=== PATIENT | male | born 1990 | race Hispanic/Latino ===

== ENCOUNTER 2019-11-15 12:43 | Emergency (ER) | payer OTHER ==
[~2019-11-15] VITALS: Ht 175.3 cm; Wt 94.4 kg
[2019-11-15] MEDS ORDERED: ACET-683 PO (12:47)
[2019-11-15] MEDS ORDERED: methocarbamoL 750 MG TAB PO ONE (13:15)
--- NOTE | 2019-11-15 14:14 | REP ---
Clinical: Severe acute lower back pain . Technique: AP, lateral, bilateral oblique, and coned-down views. Findings: Alignment and lordosis is maintained. The vertebral bodies including transverse process and spinous processes are intact and normal. There is no evidence for acute fracture / compression injury or subluxation. No evidence for spondylolysis or spondylolisthesis. No significant degenerative change is noted. Impression: Normal lumbosacral spine radiograph series. Electronically Signed by Micthel Negron MD 11/15/2019 02:06 P
[2019-11-15] MEDS ORDERED: MEDR4PAK PO (14:39)
[2019-11-15] MEDS ORDERED: ROBA750T4 PO (14:39)
[2019-11-15 14:43] VITALS: BP 136/79
== END 2019-11-15 14:47 | disposition home or self-care (01) ==
LOC: M ED 12:43
DX: M54.5 Low back pain (principal); J30.81 Allergic rhinitis due to animal (cat) (dog) hair and dander